=== PATIENT | female | born 1995 | race Caucasian/White ===

== ENCOUNTER 2018-04-14 10:01 | Emergency (ER) | payer OTHER ==
[2018-04-14] MEDS ORDERED: LIDOCAINE 1% INJ-PF (10 MG/ML) 30 ML SDV INJ ONE (10:38)
[2018-04-14 10:40] VITALS: BP 120/71
--- NOTE | 2018-04-14 10:44 | ER Document Report ---
HPI - HPI Pain Level: 5 Notes: Patient is a 22-year-old female no significant past medical history who presents to the ED complaining of an abscess surrounding the ulnar side nail of her third digit left hand. Patient states that the abscess started 4 days ago, but the redness started about a week ago with a hangnail that she pulled out. Patient was started on Bactrim yesterday by [facility]. She is no other concerns or complaints at this time. Patient states he has an allergy to penicillins which causes a rash. She still able to move her finger. Denies any injury. Denies any headache, fever, URI, sore throat, chest pain, palpitations, syncope, cough, shortness of breath, wheeze, dyspnea, abdominal pain, nausea/vomiting/diarrhea, urinary retention, dysuria, hematuria, numbness/ tingling, muscle paralysis/weakness. - ROS Systems Reviewed and Negative: Yes All other systems reviewed and negative - CONSTITUTIONAL Constitutional: DENIES: Fever, Chills - EENT EENT: DENIES: Sore Throat, Ear Pain, Eye problems - NEURO Neurology: DENIES: Headache, Weakness, Vision blurred, Dizzinesss / Vertigo - CARDIOVASCULAR Cardiovascular: DENIES: Chest pain - RESPIRATORY Respiratory: DENIES: Trouble Breathing, Coughing - GASTROINTESTINAL Gastrointestinal: DENIES: Abdominal Pain, Black / Bloody Stools - URINARY Urinary: DENIES: Dysuria, Urgency, Frequency - MUSCULOSKELETAL Musculoskeletal: REPORTS: Extremity pain Past Medical History - Social History Smoking Status: Former Smoker Family History: Reviewed & Not Pertinent Patient has suicidal ideation: No Patient has homicidal ideation: No Renal/ Medical History: Denies: Hx Peritoneal Dialysis Vertical Provider Document - CONSTITUTIONAL Agree With Documented VS: Yes Notes: PHYSICAL EXAMINATION: GENERAL: Well-appearing, well-nourished and in no acute distress. LUNGS: Breath sounds clear to auscultation bilaterally and equal. No wheezes rales or rhonchi. HEART: Regular rate and rhythm without murmurs, rubs, gallops. Musculoskeletal: Left hand 3rd digit: FROM to passive/active. Strength 5+/5. N/ V intact. Extremities: No cyanosis, clubbing, or edema b/l. Peripheral pulses 2+. Capillary refill less than 3 seconds. NEUROLOGICAL: Cranial nerves grossly intact. Normal speech, normal gait. Normal sensory, motor exams PSYCH: Normal mood, normal affect. SKIN: lt hand 3rd digit: there is a very large paronychia with abscess noted. Pulp is mildly tender, but not convincing for felon. No streaks. + tenderness to the paronychia otherwise. - INFECTION CONTROL TRAVEL OUTSIDE OF THE [place] IN LAST 30 DAYS: No Course - Re-evaluation Re-evalutation: 04/14/18 10:49 Dr. Costello also eval'd the finger for possible felon and does not believe a felon has resulted at this time. 04/14/18 11:15 Patient is an afebrile, well-hydrated, 22-year-old female who presents to the ED with a paronychia to left third digit of the hand. Vitals are acceptable without any significant tachycardia, tachypnea, or hypoxia. PE is otherwise unremarkable for any neurovascular compromise, obvious tendon/ligament rupture, obvious fracture/dislocation. Incision and drainage was performed successfully without any complications. Wound dressing was placed and wound instructions reviewed. Wound culture was obtained. No other labs or imaging warranted at this time based on H&P. Patient is nontoxic-appearing is tolerating p.o. without difficulties. Patient is already on Bactrim that she started yesterday. I will add Keflex to her regimen. Recheck with your PCM in 2-3 days. Return to the ED with any worsening/concerning symptoms otherwise as reviewed in discharge. Patient is in agreement. - Vital Signs Vital signs: Temp Pulse Resp BP Pulse Ox 97.9 F 85 18 120/71 97 04/14/18 10:38 04/14/18 10:38 04/14/18 10:38 04/14/18 10:38 04/14/18 10:38 Procedures - Incision and Drainage Left Finger 3rd digit Time completed: 11:10 - Patient tolerated procedure well without any complications. Wound culture was obtained. Type: Simple Anesthetic type: 1% Lidocaine mL's of anesthetic: 10 Blade size: 11 I&D procedure: Betadine prep applied, Sterile dressing applied, Other - chlorhexadine/saline Incision Method: Incision made by scalpel Amount/type of drainage: moderate purulent Discharge - Discharge Clinical Impression: Paronychia of finger of left hand Condition: Stable Disposition: HOME, SELF-CARE Instructions: Antibiotic Ointment Protection ([facility]), Soap Cleansing ([facility]) Additional Instructions: Keep the skin clean Wash with soap and water Tylenol/ibuprofen if needed Triple antibiotic ointment daily Epson salt soaks Daily dressing change until the wound is no longer draining, then he may leave it open to the air Take medication as directed Monitor for any worsening symptoms Recheck with your PCM in 2-3 days Return to the ED with any worsening symptoms and/or development of fever, headache, chest pain, palpitations, syncope, shortness of breath, trouble breathing, abdominal pain, n/v/d, abscess, purulent discharge, red streaks, worsening swelling, or other worsening symptoms that are concerning to you. Prescriptions: Cephalexin Monohydrate [Keflex 500 mg Capsule] 500 mg PO TID #30 capsule Referrals: Provider, Primary [Other] - 04/16/18
== END 2018-04-14 11:29 | disposition home or self-care (01) ==
LOC: ER 10:01
DX: L03.012 Cellulitis of left finger (principal); Z87.891 Personal history of nicotine dependence; Z88.0 Allergy status to penicillin
CPT/HCPCS: 87070; 87075; 87077; 87205; 99283